=== PATIENT | male | born 1965 | race Caucasian/White ===

== ENCOUNTER 2024-06-03 13:48 | Inpatient (IN) | payer OTHER ==
[2024-06-03 13:59] LABS: Glucose,Whole Blood 377 mg/dL (70-110)
--- NOTE | 2024-06-03 15:41 | ED ---
URI HPI - General Source: patient Mode of arrival: wheelchair Limitations: no limitations <Fabio Lott - Last Filed: 06/03/24 15:39> <Little Bejarano - Last Filed: 06/04/24 17:34> - General Chief Complaint: Upper Respiratory Infection Stated Complaint: Covid, foot injury, weakness, vomiting Time Seen by Provider: 06/03/24 15:28 - History of Present Illness Initial Comments: 59-year-old male presenting with generalized weakness. Patient recently traveled from [place] and several family members have tested positive for COVID. Patient has been feeling weak and dizzy. He has been having nausea and vomiting and unable to tolerate oral intake. He fell at home today, denies any head injury. While he was in [facility] he got severe sunburns to his lower legs and states that they are extremely swollen and weeping (Fabio Lott) Patient is a 59-year-old gentleman presenting today for weakness. History provided by patient and ex- at bedside. They state that they recently trave led to [place] his son's wedding and everyone ended up with COVID19. Patient became symptomatic on Monday and flew home that day. Has been feeling weak and lightheaded for the last 2 days. Decreased intake. Last took his home 30 units of insulin at 1 PM. Denies fevers, endorses chills. Additionally, endorses right ear pain and a mild headache. Earlier today he felt so weak that he did fall on his left side but states it was "a light fall" and did not hit his head. Fell onto his left shoulder and left hip but denies any pain there currently. (Little Bejarano) - Related Data Home Medications Medication Instructions Recorded Confirmed No Known Home Medications 06/03/24 06/03/24 Allergies Allergy/AdvReac Type Severity Reaction Status Date / Time No Known Allergies Allergy Verified 06/03/24 20:13 Review of Systems ROS Other: All systems not noted in ROS Statement are negative. <Fabio Lott - Last Filed: 06/03/24 15:39> ROS Other: All systems not noted in ROS Statement are negative. Constitutional: Reports: weakness. Denies: fever, chills Eyes: Denies: vision change ENT: Reports: ear pain Respiratory: Reports: dyspnea. Denies: cough, hemoptysis Cardiovascular: Reports: dyspnea on exertion. Denies: chest pain Endocrine: Reports: fatigue Gastrointestinal: Reports: nausea, vomiting (one epsiode NBNB emesis). Denies: abdominal pain Musculoskeletal: Denies: arthralgia Neurological: Reports: headache. Denies: weakness, numbness, paresthesias <Little Bejarano - Last Filed: 06/04/24 17:34> ROS Statement: Those systems with pertinent positive or pertinent negative responses have been documented in the HPI. Past Medical History Smoking Status: Current every day smoker Past Alcohol Use History: Daily Past Drug Use History: None Reported <Fabio Lott - Last Filed: 06/03/24 15:39> General Exam Limitations: no limitations <Fabio Lott - Last Filed: 06/03/24 15:39> <Little Bejarano - Last Filed: 06/04/24 17:34> - General Exam Comments Initial Comments: Visual Physical Exam Vital signs reviewed General: Well-appearing, nontoxic, no acute distress. Head: Normocephalic, atraumatic Eyes: PERRLA, EOMI ENT: Airway patent Chest: Nonlabored breathing Skin: No visual rash, normal skin tone Neuro: Alert and oriented 3 Musculoskeletal: No gross abnormalities (Fabio Lott) PE: CONSTITUTIONAL: No apparent distress, ill-appearing, nontoxic SKIN: Warm, dry, no jaundice, hives or petechiae; erythema of the dorsal aspect of the feet bilaterally with single blisters, ruptured, scant discharge from left blister EYES: Pupils are equally round, extraocular movements intact without nystagmus, clear conjunctiva, non-icteric sclera HENT: Normocephalic, atraumatic, dry mucus membranes, oropharynx clear without exudates, right mastoid tenderness, erythematous right tympanic membrane with effusion present, no posterior auricular swelling or protrusion, no erythema overlying region of the mastoid process NECK: , Full range of motion, normal appearance PULMONARY: Clear to auscultation without wheezes, rhonchi, or rales, normal excursion, no accessory muscle use and no stridor CARDIOVASCULAR: Regular rate, rhythm, normal S1 and S2. No appreciated murmurs, rubs or gallops. Strong radial pulses with intact distal perfusion. No lower extremity edema GASTROINTESTINAL: Soft, active bowel sounds throughout, non-tender, non- distended, no palpable masses, no rebound or guarding. No hepatosplenomegaly MUSCULOSKELETAL: Extremities have no gross deformity, no edema, redness, or swelling. No calf swelling NEUROLOGIC:_a/o x 3, GCS 15, normal mentation and speech. Moves all extremities x 4 without motor or sensory deficit PSYCHIATRIC:_normal mood and affect, thought process is clear and linear (Little Bejarano) Course Vital Signs 06/03/24 06/03/24 06/03/24 13:51 19:00 21:08 Temperature 98.1 F 98.7 F 98.2 F Pulse Rate 59 L 99 89 Respiratory 18 16 18 Rate Blood Pressure 100/61 145/78 153/76 O2 Sat by Pulse 99 99 98 Oximetry 06/03/24 06/04/24 06/04/24 23:20 00:51 02:00 Temperature Pulse Rate 100 106 H 97 Respiratory 20 24 18 Rate Blood Pressure 153/72 132/58 O2 Sat by Pulse 97 97 Oximetry 06/04/24 06/04/24 06/04/24 03:00 05:06 05:50 Temperature 100.9 F H Pulse Rate 98 91 Respiratory 20 18 Rate Blood Pressure 143/59 130/57 O2 Sat by Pulse 98 97 Oximetry 06/04/24 06/04/24 06/04/24 06:02 07:02 08:11 Temperature 100.3 F H 98.0 F Pulse Rate 93 81 Respiratory 24 20 Rate Blood Pressure 137/63 129/67 O2 Sat by Pulse 94 L 96 Oximetry 06/04/24 06/04/24 06/04/24 09:59 11:00 12:40 Temperature 98.3 F Pulse Rate 78 78 80 Respiratory 20 22 20 Rate Blood Pressure 131/59 132/72 148/71 O2 Sat by Pulse 96 99 98 Oximetry 06/04/24 14:49 Temperature 99.7 F H Pulse Rate 86 Respiratory 18 Rate Blood Pressure 133/74 O2 Sat by Pulse 98 Oximetry Medical Decision Making <Fabio Lott - Last Filed: 06/03/24 15:39> - Lab Data Result diagrams: 06/04/24 05:56 06/04/24 14:21 <Little Bejarano - Last Filed: 06/04/24 17:34> - Medical Decision Making I performed the quick note portion of this visit, electronically signed Fabio Lott PA-C (Fabio Lott) Was pt. sent in by a medical professional or institution ([facility], [employer], urgent care, hospital, or [place] health care facility...) When possible be specific @ -No Did you speak to anyone other than the patient for history (EMS, parent, family, police, friend...)? What history was obtained from this source @ -Patient's ex- assisted in providing history, provided history that family is COVID-positive Did you review nursing and triage notes (agree or disagree)? Why? @ -I reviewed nursing and triage notes- correction in that patient's ear was bleeding monday night, no longer Were old charts reviewed (outside hosp., previous admission, EMS record, old EKG, old radiological studies, urgent care reports/EKG's, [place] health care facility records)? Report findings @Medical records reviewed- no recent ED visits Differential Diagnosis (chest pain, altered mental status, abdominal pain women, abdominal pain men, vaginal bleeding, weakness, fever, dyspnea, syncope, headache, dizziness, GI bleed, back pain, seizure, CVA, palpatations, mental health, musculoskeletal)? Differential Weakness: Hypoglycemia, DKA, viral infection, shock, sepsis, hyponatremia, anemia, infection, ACS this is not meant to be an all-inclusive list. EKG interpreted by me (3pts min.). @ - sinus rhythm, rate 86 beats minute, IL interval 154 ms QRS duration 90 ms QT/QTc 405/448 ms normal axis, T wave inversion aVR, questionable half millimeter ST elevation in aVL, no ST depressions, no STEMI, no arrhythmia X-rays interpreted by me (1pt min.). No cardiomegaly, consolidations or pleural effusions CT interpreted by me (1pt min.). @No air fluid levels or haziness of the right mastoid air cells U/S interpreted by me (1pt. min.). @ -None done What testing was considered but not performed or refused? (CT, X-rays, U/S, labs)? Why? @ -None What meds were considered but not given or refused? Why? @ -None Did you discuss the management of the patient with other professionals (professionals i.e. [facility], [employer], lab, RT, psych nurse, socially responsible investment adviser, model builder, teacher, special technical operations officer, case preparer and liner)? Give summary @ -No Was smoking cessation discussed for >3mins.? @ -No Was critical care preformed (if so, how long)? @Yes, 35 minutes Were there social determinants of health that impacted care today? How? (Homelessness, low income, unemployed, alcoholism, drug addiction, transportation, low edu. Level, literacy, decrease access to med. care, alf, rehab)? @ -No Was there de-escalation of care discussed even if they declined (Discuss DNR or withdrawal of care, Hospice)? @ -No What co-morbidities impacted this encounter? (DM, HTN, Smoking, COPD, CAD, Cancer, CVA, ARF, Chemo, Hep., AIDS, mental health diagnosis, sleep apnea, morbid obesity)? DM Was patient admitted / discharged? Hospital course, mention meds given and route, prescriptions, significant lab abnormalities, going to OR and other pertinent info. @Admission- 59 y/o male PMH DM type II presenting today for weakness, lightheadedness, right ear pain, COVID+. Has never been vaccinated against [place] VID19. Patient initially seen and assessed in triage by [facility]. Labs resulted consistent with DKA. Repeat blood sugar check without intervention was 186 so repeat BMP was drawn after 2 L IV fluids given. Discussed anticipated plan for admission with patient. He is agreeable plan. On recheck blood sugar back up to 339. Insulin bolus and drip and additional DKA orders placed. Additionally patient had right mastoid tenderness and right otitis media, CT mastoids ordered as well as cefepime and vancomycin to cover for mastoiditis. Mastoid CT read by radiologist as "opacification of the right mastoid air cells, no septal destruction is evident, some fluid is in the right middle ear, left mastoid air cells are underpneumatized, visualized mastoid air cells are aerated... Clinical correlation for early mastoiditis, otitis media on the right is likely present with acute left maxillary sinusitis". On review there does not appear to be air fluid levels or haziness of the right mastoid region on CT. Plan for admission for DKA. Case discussed with Dr. Daniel, kindly accepts patient for admission. Undiagnosed new problem with uncertain prognosis? @ -No Drug Therapy requiring intensive monitoring for toxicity (Heparin, Nitro, Insulin, Cardizem)? @ -No Were any procedures done? @ -No Diagnosis/symptom? Right otitis media, cellulitis, DKA, question early right mastoiditis Acute, or Chronic, or Acute on Chronic? @Acute Uncomplicated (without systemic symptoms) or Complicated (systemic symptoms)? Complicated Side effects of treatment? @ -No Exacerbation, Progression, or Severe Exacerbation? @ -No Poses a threat to life or bodily function? How? (Chest pain, USA, MA, pneumonia, PE, COPD, DKA, ARF, appy, cholecystitis, CVA, Diverticulitis, Homicidal, Suicidal, threat to staff... and all critical care pts) @Yes (Little Bejarano) - Lab Data Lab Results 06/03/24 06/03/24 06/03/24 Range/Units 13:58 13:58 16:41 WBC 13.8 H (3.8-10.6) k/uL RBC 4.39 (4.30-5.90) m/uL Hgb 14.7 (13.0-17.5) gm/dL Hct 44.0 (39.0-53.0) % MCV 100.2 H (80.0-100.0) fL MCH 33.5 (25.0-35.0) pg MCHC 33.5 (31.0-37.0) g/dL RDW 12.3 (11.5-15.5) % Plt Count 190 (150-450) k/uL MPV 8.6 Neutrophils % 86 % Lymphocytes % 6 % Monocytes % 6 % Eosinophils % 1 % Basophils % 0 % Neutrophils # 11.8 H (1.3-7.7) k/uL Lymphocytes # 0.9 L (1.0-4.8) k/uL Monocytes # 0.8 (0-1.0) k/uL Eosinophils # 0.1 (0-0.7) k/uL Basophils # 0.1 (0-0.2) k/uL PT (10.0-12.5) sec INR (<1.2) APTT (22.0-30.0) sec D-Dimer (<0.60) mg/L FEU Sodium (137-145) mmol/L Potassium (3.5-5.1) mmol/L Chloride (98-107) mmol/L Carbon Dioxide (22-30) mmol/L Anion Gap mmol/L BUN (9-20) mg/dL Creatinine (0.66-1.25) mg/dL Est GFR (CKD-EPI)AfAm (>60 ml/min/1.73 sqM) Est GFR (CKD-EPI)NonAf (>60 ml/min/1.73 sqM) Glucose (74-99) mg/dL POC Glucose (mg/dL) 377 H (70-110) mg/dL POC Glu Smoke Control Supervisor ID Rc Ban Plasma Lactic Acid Maury (0.7-2.0) mmol/L Calcium (8.4-10.2) mg/dL Phosphorus (2.5-4.5) mg/dL Magnesium (1.6-2.3) mg/dL Total Bilirubin (0.2-1.3) mg/dL AST (17-59) U/L ALT (4-49) U/L Alkaline Phosphatase (38-126) U/L Total Protein (6.3-8.2) g/dL Albumin (3.5-5.0) g/dL Acetone, Qual (Negative) Influenza Type A (PCR) Not Detected (Not Detectd) Influenza Type B (PCR) Not Detected (Not Detectd) RSV (PCR) Not Detected (Not Detectd) SARS-CoV-2 (PCR) Detected A (Not Detectd) 06/03/24 06/03/24 06/03/24 Range/Units 16:41 16:41 16:41 WBC (3.8-10.6) k/uL RBC (4.30-5.90) m/uL Hgb (13.0-17.5) gm/dL Hct (39.0-53.0) % MCV (80.0-100.0) fL MCH (25.0-35.0) pg MCHC (31.0-37.0) g/dL RDW (11.5-15.5) % Plt Count (150-450) k/uL MPV Neutrophils % % Lymphocytes % % Monocytes % % Eosinophils % % Basophils % % Neutrophils # (1.3-7.7) k/uL Lymphocytes # (1.0-4.8) k/uL Monocytes # (0-1.0) k/uL Eosinophils # (0-0.7) k/uL Basophils # (0-0.2) k/uL PT 10.2 (10.0-12.5) sec INR 0.9 (<1.2) APTT 22.7 (22.0-30.0) sec D-Dimer (<0.60) mg/L FEU Sodium 134 L (137-145) mmol/L Potassium 5.0 (3.5-5.1) mmol/L Chloride 97 L (98-107) mmol/L Carbon Dioxide 11 L (22-30) mmol/L Anion Gap 26 mmol/L BUN 25 H (9-20) mg/dL Creatinine 1.05 (0.66-1.25) mg/dL Est GFR (CKD-EPI)AfAm 89 (>60 ml/min/1.73 sqM) Est GFR (CKD-EPI)NonAf 77 (>60 ml/min/1.73 sqM) Glucose 391 H (74-99) mg/dL POC Glucose (mg/dL) (70-110) mg/dL POC Glu Smoke Control Supervisor ID Plasma Lactic Acid Maury 2.0 (0.7-2.0) mmol/L Calcium 9.1 (8.4-10.2) mg/dL Phosphorus (2.5-4.5) mg/dL Magnesium 2.0 (1.6-2.3) mg/dL Total Bilirubin 0.9 (0.2-1.3) mg/dL AST 29 (17-59) U/L ALT 31 (4-49) U/L Alkaline Phosphatase 60 (38-126) U/L Total Protein 7.6 (6.3-8.2) g/dL Albumin 4.2 (3.5-5.0) g/dL Acetone, Qual Positive (Negative) Influenza Type A (PCR) (Not Detectd) Influenza Type B (PCR) (Not Detectd) RSV (PCR) (Not Detectd) SARS-CoV-2 (PCR) (Not Detectd) 06/03/24 06/03/24 06/03/24 Range/Units 16:41 18:57 20:26 WBC (3.8-10.6) k/uL RBC (4.30-5.90) m/uL Hgb (13.0-17.5) gm/dL Hct (39.0-53.0) % MCV (80.0-100.0) fL MCH (25.0-35.0) pg MCHC (31.0-37.0) g/dL RDW (11.5-15.5) % Plt Count (150-450) k/uL MPV Neutrophils % % Lymphocytes % % Monocytes % % Eosinophils % % Basophils % % Neutrophils # (1.3-7.7) k/uL Lymphocytes # (1.0-4.8) k/uL Monocytes # (0-1.0) k/uL Eosinophils # (0-0.7) k/uL Basophils # (0-0.2) k/uL PT (10.0-12.5) sec INR (<1.2) APTT (22.0-30.0) sec D-Dimer 0.48 (<0.60) mg/L FEU Sodium (137-145) mmol/L Potassium (3.5-5.1) mmol/L Chloride (98-107) mmol/L Carbon Dioxide (22-30) mmol/L Anion Gap mmol/L BUN (9-20) mg/dL Creatinine (0.66-1.25) mg/dL Est GFR (CKD-EPI)AfAm (>60 ml/min/1.73 sqM) Est GFR (CKD-EPI)NonAf (>60 ml/min/1.73 sqM) Glucose (74-99) mg/dL POC Glucose (mg/dL) 168 H 349 H (70-110) mg/dL POC Glu Smoke Control Supervisor [facility] Plasma Lactic Acid Maury (0.7-2.0) mmol/L Calcium (8.4-10.2) mg/dL Phosphorus (2.5-4.5) mg/dL Magnesium (1.6-2.3) mg/dL Total Bilirubin (0.2-1.3) mg/dL AST (17-59) U/L ALT (4-49) U/L Alkaline Phosphatase (38-126) U/L Total Protein (6.3-8.2) g/dL Albumin (3.5-5.0) g/dL Acetone, Qual (Negative) Influenza Type A (PCR) (Not Detectd) Influenza Type B (PCR) (Not Detectd) RSV (PCR) (Not Detectd) SARS-CoV-2 (PCR) (Not Detectd) 06/03/24 06/03/24 06/03/24 Range/Units 20:33 20:33 20:33 WBC (3.8-10.6) k/uL RBC (4.30-5.90) m/uL Hgb (13.0-17.5) gm/dL Hct (39.0-53.0) % MCV (80.0-100.0) fL MCH (25.0-35.0) pg MCHC (31.0-37.0) g/dL RDW (11.5-15.5) % Plt Count (150-450) k/uL MPV Neutrophils % % Lymphocytes % % Monocytes % % Eosinophils % % Basophils % % Neutrophils # (1.3-7.7) k/uL Lymphocytes # (1.0-4.8) k/uL Monocytes # (0-1.0) k/uL Eosinophils # (0-0.7) k/uL Basophils # (0-0.2) k/uL PT (10.0-12.5) sec INR (<1.2) APTT (22.0-30.0) sec D-Dimer (<0.60) mg/L FEU Sodium 135 L 136 L (137-145) mmol/L Potassium 4.2 4.3 (3.5-5.1) mmol/L Chloride 100 100 (98-107) mmol/L Carbon Dioxide 11 L 11 L (22-30) mmol/L Anion Gap 24 25 mmol/L BUN 26 H 26 H (9-20) mg/dL Creatinine 1.04 1.00 (0.66-1.25) mg/dL Est GFR (CKD-EPI)AfAm >90 >90 (>60 ml/min/1.73 sqM) Est GFR (CKD-EPI)NonAf 78 82 (>60 ml/min/1.73 sqM) Glucose 344 H 339 H (74-99) mg/dL POC Glucose (mg/dL) (70-110) mg/dL POC Glu Smoke Control Supervisor ID Plasma Lactic Acid Maury (0.7-2.0) mmol/L Calcium 8.1 L (8.4-10.2) mg/dL Phosphorus 3.7 (2.5-4.5) mg/dL Magnesium (1.6-2.3) mg/dL Total Bilirubin (0.2-1.3) mg/dL AST (17-59) U/L ALT (4-49) U/L Alkaline Phosphatase (38-126) U/L Total Protein (6.3-8.2) g/dL Albumin (3.5-5.0) g/dL Acetone, Qual (Negative) Influenza Type A (PCR) (Not Detectd) Influenza Type B (PCR) (Not Detectd) RSV (PCR) (Not Detectd) SARS-CoV-2 (PCR) (Not Detectd) Disposition <Fabio Lott - Last Filed: 06/03/24 15:39> <Little Bejarano - Last Filed: 06/04/24 17:34> Clinical Impression: DKA (diabetic ketoacidosis), COVID-19, Cellulitis, Otitis media Disposition: ADMITTED IP TO THIS HOSP Condition: Good
--- NOTE | 2024-06-03 16:26 | XR ---
Chest, 2 view. HISTORY: Weakness COMPARISON: None TECHNIQUE: PA and lateral views the chest are obtained. FINDINGS: The lungs are clear and there is no consolidative or interstitial opacity. There is no pleural effusion or pneumothorax. The heart, pulmonary vasculature, mediastinum and francisco javier appear normal. The osseous structures are intact. IMPRESSION: No significant abnormality seen. No acute cardiopulmonary disease. [facility], Workstation: [facility], 06/03/2024 4:24 PM
[2024-06-03 17:25] LABS: Basophils # (A) 0.1 k/uL (0-0.2); Basophils % (A) 0 %; Eosinophils # (A) 0.1 k/uL (0-0.7); Eosinophils % (A) 1 %; HGB 14.7 gm/dL (13.0-17.5); Lymphocytes # (A) 0.9 k/uL (1.0-4.8); Lymphocytes % (A) 6 %; MCH 33.5 pg (25.0-35.0); MCHC 33.5 g/dL (31.0-37.0); MCV 100.2 fL (80.0-100.0); Mean Platelet Volume 8.6; Monocytes # (A) 0.8 k/uL (0-1.0); Monocytes % (A) 6 %; Neutrophils # (A) 11.8 k/uL (1.3-7.7); Neutrophils % (A) 86 %; Platelet Count 190 k/uL (150-450); RBC 4.39 m/uL (4.30-5.90); RDW 12.3 % (11.5-15.5); WBC 13.8 k/uL (3.8-10.6)
[2024-06-03 17:45] LABS: INR 0.9 (<1.2); Partial Thromboplastin Time 22.7 sec (22.0-30.0); Prothrombin Time 10.2 sec (10.0-12.5)
[2024-06-03 17:49] LABS: ALT 31 U/L (4-49); AST 29 U/L (17-59); African American GFR (CKD) 89 (>60 ml/min/1.73 sqM); Albumin 4.2 g/dL (3.5-5.0); Alkaline Phosphatase 60 U/L (38-126); Anion Gap 26 mmol/L; Blood Urea Nitrogen 25 mg/dL (9-20); Calcium 9.1 mg/dL (8.4-10.2); Carbon Dioxide 11 mmol/L (22-30); Chloride 97 mmol/L (98-107); Glucose 391 mg/dL (74-99); Non-African American GFR(CKD) 77 (>60 ml/min/1.73 sqM); Sodium 134 mmol/L (137-145); Total Bilirubin 0.9 mg/dL (0.2-1.3); Total Protein 7.6 g/dL (6.3-8.2)
[2024-06-03 18:59] LABS: Glucose,Whole Blood 168 mg/dL (70-110)
[2024-06-03] MEDS: SODIUM CHLORIDE 0.9% 2,000 ML IV ONE (19:19)
[2024-06-03] MEDS ORDERED: VANCOMYCIN IV PER PHARMACY 1 EACH MISC MISCELLANE PRN (19:24)
[2024-06-03] MEDS ORDERED: INSULIN REGULAR 100 UNIT in SODIUM CHLORIDE 0.9% 100 ML IV SCH (19:30)
[2024-06-03 20:28] LABS: Glucose,Whole Blood 349 mg/dL (70-110)
--- NOTE | 2024-06-03 20:37 | CT ---
EXAMINATION TYPE: CT mastoid wo con DATE OF EXAM: 06/03/2024 8:14 PM COMPARISON: None. CLINICAL INDICATION: Male, 59 years old with history of R. ear inf. mastoid TTP, DM, Right ear bleedi ng, fall, dizziness, weakness, fatigue, vomiting. TECHNIQUE: Contrast used: mL of , (none if empty) Oral contrast used: (none if empty) Axial images were obtained at 1.5 mm thick sections. Reconstructed images in the coronal plane are re viewed. FINDINGS: There is opacification the right mastoid air cells. No septal destruction is evident. Some fluid is i n the right middle ear. Left mastoid air cells are under pneumatized. Visualized mastoid air cells ar e aerated. Calcifications within scattered ethmoid air cells. Air-fluid levels within the left maxillary sinus. Ostiomeatal units are obstructed bilaterally. IMPRESSION: 1. CLINICAL CORRELATION RECOMMENDED FOR EARLY RIGHT MASTOIDITIS. 2. OTITIS MEDIA ON THE RIGHT IS LIKELY PRESENT. 3. ACUTE LEFT MAXILLARY SINUSITIS. ADDITIONAL MUCOSAL THICKENING IS NOTED WITHIN ETHMOID AIR CELLS AN D THE RIGHT MAXILLARY SINUS. THE OSTIOMEATAL UNITS ARE OBSTRUCTED. [facility], , 06/03/2024 8:35 PM
[2024-06-03] MEDS: CEFEPIME 2 GM in SODIUM CHLORIDE 0.9% 100 ML IVPB STA (21:04)
[2024-06-03 21:06] LABS: African American GFR (CKD) >90 (>60 ml/min/1.73 sqM); Anion Gap 24 mmol/L; Blood Urea Nitrogen 26 mg/dL (9-20); Carbon Dioxide 11 mmol/L (22-30); Chloride 100 mmol/L (98-107); Glucose 344 mg/dL (74-99); Non-African American GFR(CKD) 78 (>60 ml/min/1.73 sqM); Potassium 4.2 mmol/L (3.5-5.1); Sodium 135 mmol/L (137-145)
[2024-06-03] MEDS: INSULIN REGULAR BOLUS (FROM DRIP BAG) IV ONE ×2 (21:06→21:39)
[2024-06-03] MEDS: SODIUM CHLORIDE 0.9% 1,000 ML with POTASSIUM CHLORIDE 10 MEQ IV SCH (21:06)
[2024-06-03 21:07] LABS: African American GFR (CKD) >90 (>60 ml/min/1.73 sqM); Anion Gap 25 mmol/L; Blood Urea Nitrogen 26 mg/dL (9-20); Calcium 8.1 mg/dL (8.4-10.2); Carbon Dioxide 11 mmol/L (22-30); Chloride 100 mmol/L (98-107); Glucose 339 mg/dL (74-99); Non-African American GFR(CKD) 82 (>60 ml/min/1.73 sqM); Potassium 4.3 mmol/L (3.5-5.1); Sodium 136 mmol/L (137-145)
[2024-06-03] MEDS: SODIUM CHLORIDE 0.9% 1,000 ML IV SCH (21:07)
[2024-06-03] MEDS: INSULIN REGULAR 100 UNIT in SODIUM CHLORIDE 0.9% 100 ML IV SCH (21:37)
[2024-06-03] MEDS: VANCOMYCIN 2,000 MG in SODIUM CHLORIDE 0.9% 500 ML 500 ML IVPB ONE (21:49)
[2024-06-03 22:40] LABS: Glucose,Whole Blood 257 mg/dL (70-110)
[2024-06-03] MEDS: D5-0.45% NACL WITH KCL 20MEQ/L 1,000 ML IV SCH (22:53)
[2024-06-03] MEDS ORDERED: traMADol 50 MG TAB PO PRN (23:28)
[2024-06-03] MEDS ORDERED: NALOXONE 0.4 MG/ML 1 ML VIAL IV PRN (23:28)
[2024-06-03 23:35] LABS: Glucose,Whole Blood 228 mg/dL (70-110)
[2024-06-04 00:26] LABS: African American GFR (CKD) >90 (>60 ml/min/1.73 sqM); Anion Gap 19 mmol/L; Blood Urea Nitrogen 26 mg/dL (9-20); Carbon Dioxide 14 mmol/L (22-30); Chloride 105 mmol/L (98-107); Glucose 217 mg/dL (74-99); Non-African American GFR(CKD) >90 (>60 ml/min/1.73 sqM); Potassium 4.1 mmol/L (3.5-5.1); Sodium 138 mmol/L (137-145)
[2024-06-04 00:41] LABS: Glucose,Whole Blood 207 mg/dL (70-110)
[2024-06-04] MEDS: ONDANSETRON 4 MG/2 ML VIAL IVP PRN (00:42)
[2024-06-04] MEDS: MORPHINE SULFATE 4 MG/ML SYRINGE IV PRN (00:42)
[2024-06-04 01:15] LABS: Appearance,Urine Clear (Clear); Bilirubin,Urine Negative (Negative); Blood,Urine Trace (Negative); Color,Urine Colorless; Glucose,Urine (UA) 4+ (Negative); Hyaline Casts,Urine 14 /lpf (0-2); Leukocyte Esterase,Urine Negative (Negative); Mucus,Urine Rare /hpf; Nitrite,Urine Negative (Negative); PH, Urine 5.5 (5.0-8.0); Protein,Urine Trace (Negative); RBC,Urine <1 /hpf (0-5); Specific Gravity,Urine 1.026 (1.001-1.035); Squamous Epithelial Cell,Urine 1 /hpf (0-4); Urobilinogen,Urine <2.0 mg/dL (<2.0); WBC,Urine 2 /hpf (0-5)
[2024-06-04 01:23] LABS: Ketones,Urine 4+ (Negative)
[2024-06-04 01:49] LABS: Glucose,Whole Blood 182 mg/dL (70-110)
[2024-06-04 02:59] LABS: Glucose,Whole Blood 198 mg/dL (70-110)
--- NOTE | 2024-06-04 03:59 | P.HPIM ---
History of Present Illness H&P Date: 06/04/24 Chief Complaint: DKA Patient is a 59-year-old male with insulin-dependent diabetes mellitus presented with generalized weakness that started last Monday. Patient recently traveled from [place] and several family members have tested positive for COVID. Patient currently reports generalized weakness all over the body that has been going on since last Monday. His symptoms have progressively gotten worse which made the patient to come to ED for evaluation. Alongside with generalized weakness, patient also reported having watery diarrhea for the past few days with no melena/hematochezia. In addition, patient reported feeling nauseated and having dry heaves. He reports poor appetite due to the nausea. Per ED note, patient also endorsed having a fall on his left side earlier yesterday but did not hit his head. Patient takes 30 units of insulin every day and the last time he took his home insulin was at 1 PM yesterday. Patient currently endorses chills, coughing, runny nose, sore throat, right ear pain. Denies fever, belly pain, constipation, tingling/numbness in upper or lower extremity, dysuria, lower extremity swelling. ED documentation reviewed. In the ED patient was treated with 2 boluses of normal saline, bolus of regular insulin IV x 2, potassium chloride 10 mill equivalent IV x 1, cefepime 2 g IV x 1, vancomycin 2000 mg IV, 100 units of i nsulin regular IV Vitals on admission temperature 98.2, pulse rate 106, respiratory rate 24, blood pressure 153/72, O2 sat 97% on room air EKG independently interpreted as sinus rhythm with ventricular rate of 86 bpm, QTc interval of 448 ms, septal myocardial infarction probably old infarct CXR shows no significant abnormality seen. No acute cardiopulmonary disease. CT of mastoid without contrast shows clinical correlation recommended for early right mastoiditis. Otitis media on the right is likely present. Acute left maxillary sinusitis. Additional mucosal thickening is noted within the ethmoid air cells and the right maxillary sinus. The ostiomeatal units are obstructed. Labs on admission show WBC 13.8, hemoglobin 14.7, hematocrit 44, MCV 100.2, platelets 190, neutrophils 11.8, PT 10.2, PTT 22.7, INR 0.9, D-dimer 0.48, sodium 138, potassium 4.1, chloride 105, carbon dioxide 14, BUN 26, creatinine 0.9, glucose 217, phosphorus 2.0 UA shows clear urine, trace protein, 4+ glucose, 4+ ketones, trace blood, negative nitrite, negative leukocyte esterase Respiratory panel tested positive for COVID Review of systems: Pertinent positives and negatives as discussed in HPI, a complete review of systems was performed and all other systems are negative. PMH: Diabetes mellitus PSH: No past surgical history FMH: No pertinent family history Allergies: No known drug allergies Social history: Tobacco: Chronic smoker a pack a day for the past 40 years Alcohol: Drinks a couple beers a day Recreational drugs: No drug use Travel: Traveled from [place] recently and several family members have tested positive for COVID Sick contacts: Several family members have tested positive for COVID Physical examination: Vital signs reviewed General: nontoxic, no distress, appears at stated age Derm: warm, dry, intact Head: atraumatic, normocephalic, symmetric Eyes: anicteric sclera Mouth: no lip lesion, mucus membranes moist Cardiovascular: S1 S2 reg, no murmur Lungs: CTA bilateral, no rhonchi, no rales, no accessory muscle use Abdominal: soft, non-tender to palpation Extremities: No cyanosis, clubbing, or pedal edema. Neuro: Alert, Oriented to time, person, place, Gross neurological examination did not reveal any focal deficits. Cranial nerves II to XII grossly intact. Bilateral upper and lower muscle strength intact and sensation intact. Psych: appropriate affect Assessment/Plan: 59-year-old male with past medical history of presented with generalized weakness. Patient will be admitted to internal medicine service. Active: #. Diabetic ketoacidosis #. Elevated anion gap #. Hyperglycemia, history of diabetes mellitus Initial blood glucose 377, most recent glucose 198 Anion gap of 19 4+ ketones in the urine Continue insulin drip until anion gap normalizes Continue normal saline at 200 cc an hour Continue D5W at 150 cc an hour Monitor electrolytes q4h and blood glucose q1h #. Otitis media #. Early right mastoiditis #. Acute left maxillary sinusitis CT of mastoid without contrast shows early right mastoiditis and otitis media in the right ear. Also showed acute left maxillary sinusitis. Continue vancomycin per pharmacy dosing C/w Cefepime 2g q8h IV #. Leukocytosis, likely secondary to sinusitis and mastoiditis WBC 13.8 Neutrophils 11.8 Monitor morning CBC #. Hypophosphatemia Phosphorus 2.0 Initiate Phos neutral Monitor phosphorus level Monitor morning BMP #. Positive for COVID-19 Continue symptomatic treatment with Tylenol and Zofran as needed Patient not requiring supplemental oxygen at this time F: No restrictions E: As needed N: NPO diet A: Wheelchair DVT prophylaxis: Pneumatic compression sleeve The patient is admitted with an anticipated more than 2 midnight stay for evaluation of DKA CODE STATUS: Full code Discussed with: Patient Anticipated discharge place: Home Past Medical History Smoking Status: Current every day smoker Past Alcohol Use History: Daily Past Drug Use History: None Reported Medications and Allergies Home Medications Medication Instructions Recorded Confirmed Type No Known Home Medications 06/03/24 06/03/24 History Allergies Allergy/AdvReac Type Severity Reaction Status Date / Time No Known Allergies Allergy Verified 06/03/24 20:13 Physical Exam Vitals: Vital Signs Temp Pulse Resp BP Pulse Ox 06/04/24 00:51 106 H 24 97 06/03/24 23:20 100 20 153/72 97 06/03/24 21:08 98.2 F 89 18 153/76 98 06/03/24 19:00 98.7 F 99 16 145/78 99 06/03/24 13:51 98.1 F 59 L 18 100/61 99 Intake and Output 06/03/24 06/03/24 06/04/24 14:59 22:59 06:59 Other: Weight 90.718 kg Results CBC & Chem 7: 06/03/24 16:41 06/03/24 23:59 Labs: Abnormal Lab Results - Last 24 Hours (Table) 06/03/24 06/03/24 06/03/24 Range/Units 13:58 13:58 16:41 WBC 13.8 H (3.8-10.6) k/uL MCV 100.2 H (80.0-100.0) fL Neutrophils # 11.8 H (1.3-7.7) k/uL Lymphocytes # 0.9 L (1.0-4.8) k/uL Sodium (137-145) mmol/L Chloride (98-107) mmol/L Carbon Dioxide (22-30) mmol/L BUN (9-20) mg/dL Glucose (74-99) mg/dL POC Glucose (mg/dL) 377 H (70-110) mg/dL Calcium (8.4-10.2) mg/dL Phosphorus (2.5-4.5) mg/dL Urine Protein (Negative) Urine Glucose (UA) (Negative) Urine Ketones (Negative) Urine Blood (Negative) Hyaline Casts (0-2) /lpf Urine Mucus (None) /hpf SARS-CoV-2 (PCR) Detected A (Not Detectd) 06/03/24 06/03/24 06/03/24 Range/Units 16:41 18:57 20:26 WBC (3.8-10.6) k/uL MCV (80.0-100.0) fL Neutrophils # (1.3-7.7) k/uL Lymphocytes # (1.0-4.8) k/uL Sodium 134 L (137-145) mmol/L Chloride 97 L (98-107) mmol/L Carbon Dioxide 11 L (22-30) mmol/L BUN 25 H (9-20) mg/dL Glucose 391 H (74-99) mg/dL POC Glucose (mg/dL) 168 H 349 H (70-110) mg/dL Calcium (8.4-10.2) mg/dL Phosphorus (2.5-4.5) mg/dL Urine Protein (Negative) Urine Glucose (UA) (Negative) Urine Ketones (Negative) Urine Blood (Negative) Hyaline Casts (0-2) /lpf Urine Mucus (None) /hpf SARS-CoV-2 (PCR) (Not Detectd) 06/03/24 06/03/24 06/03/24 Range/Units 20:33 20:33 22:38 WBC (3.8-10.6) k/uL MCV (80.0-100.0) fL Neutrophils # (1.3-7.7) k/uL Lymphocytes # (1.0-4.8) k/uL Sodium 135 L 136 L (137-145) mmol/L Chloride (98-107) mmol/L Carbon Dioxide 11 L 11 L (22-30) mmol/L BUN 26 H 26 H (9-20) mg/dL Glucose 344 H 339 H (74-99) mg/dL POC Glucose (mg/dL) 257 H (70-110) mg/dL Calcium 8.1 L (8.4-10.2) mg/dL Phosphorus (2.5-4.5) mg/dL Urine Protein (Negative) Urine Glucose (UA) (Negative) Urine Ketones (Negative) Urine Blood (Negative) Hyaline Casts (0-2) /lpf Urine Mucus (None) /hpf SARS-CoV-2 (PCR) (Not Detectd) 06/03/24 06/03/24 06/03/24 Range/Units 23:34 23:59 23:59 WBC (3.8-10.6) k/uL MCV (80.0-100.0) fL Neutrophils # (1.3-7.7) k/uL Lymphocytes # (1.0-4.8) k/uL Sodium (137-145) mmol/L Chloride (98-107) mmol/L Carbon Dioxide 14 L (22-30) mmol/L BUN 26 H (9-20) mg/dL Glucose 217 H (74-99) mg/dL POC Glucose (mg/dL) 228 H (70-110) mg/dL Calcium (8.4-10.2) mg/dL Phosphorus 2.0 L (2.5-4.5) mg/dL Urine Protein (Negative) Urine Glucose (UA) (Negative) Urine Ketones (Negative) Urine Blood (Negative) Hyaline Casts (0-2) /lpf Urine Mucus (None) /hpf SARS-CoV-2 (PCR) (Not Detectd) 06/04/24 06/04/24 06/04/24 Range/Units 00:35 00:40 01:48 WBC (3.8-10.6) k/uL MCV (80.0-100.0) fL Neutrophils # (1.3-7.7) k/uL Lymphocytes # (1.0-4.8) k/uL Sodium (137-145) mmol/L Chloride (98-107) mmol/L Carbon Dioxide (22-30) mmol/L BUN (9-20) mg/dL Glucose (74-99) mg/dL POC Glucose (mg/dL) 207 H 182 H (70-110) mg/dL Calcium (8.4-10.2) mg/dL Phosphorus (2.5-4.5) mg/dL Urine Protein Trace H (Negative) Urine Glucose (UA) 4+ H (Negative) Urine Ketones 4+ H (Negative) Urine Blood Trace H (Negative) Hyaline Casts 14 H (0-2) /lpf Urine Mucus Rare H (None) /hpf SARS-CoV-2 (PCR) (Not Detectd)
[2024-06-04 04:02] LABS: Glucose,Whole Blood 146 mg/dL (70-110)
[2024-06-04 05:44] LABS: Glucose,Whole Blood 124 mg/dL (70-110)
[2024-06-04] MEDS: ACETAMINOPHEN TAB 325 MG TAB PO PRN (05:55)
[2024-06-04 06:29] LABS: Basophils % (A) 0 %; Eosinophils % (A) 0 %; HCT 36.8 % (39.0-53.0); HGB 12.3 gm/dL (13.0-17.5); Lymphocytes # (A) 0.9 k/uL (1.0-4.8); Lymphocytes % (A) 8 %; MCH 32.4 pg (25.0-35.0); MCHC 33.3 g/dL (31.0-37.0); MCV 97.3 fL (80.0-100.0); Mean Platelet Volume 8.3; Monocytes # (A) 1.6 k/uL (0-1.0); Monocytes % (A) 13 %; Neutrophils # (A) 9.6 k/uL (1.3-7.7); Neutrophils % (A) 77 %; Platelet Count 201 k/uL (150-450); RBC 3.79 m/uL (4.30-5.90); RDW 12.2 % (11.5-15.5); WBC 12.4 k/uL (3.8-10.6)
[2024-06-04 06:58] LABS: Glucose,Whole Blood 133 mg/dL (70-110)
[2024-06-04] MEDS: CEFEPIME 2 GM in SODIUM CHLORIDE 0.9% 100 ML IVPB SCH (07:00)
[2024-06-04 07:11] LABS: African American GFR (CKD) >90 (>60 ml/min/1.73 sqM); Anion Gap 10 mmol/L; Blood Urea Nitrogen 23 mg/dL (9-20); Calcium 8.1 mg/dL (8.4-10.2); Carbon Dioxide 19 mmol/L (22-30); Chloride 108 mmol/L (98-107); Glucose 111 mg/dL (74-99); Non-African American GFR(CKD) >90 (>60 ml/min/1.73 sqM); Phosphorus 1.2 mg/dL (2.5-4.5); Potassium 3.9 mmol/L (3.5-5.1); Sodium 137 mmol/L (137-145)
[2024-06-04 08:15] LABS: Glucose,Whole Blood 149 mg/dL (70-110)
[2024-06-04] MEDS: POTAS-SOD-PHOS 280-160-250 MG 1 EACH PACKET PO SCH (08:18)
[2024-06-04] MEDS: INSULIN NPH 100 UNIT/ML 10 ML VIAL SQ ONE (08:40)
[2024-06-04 09:54] LABS: Glucose,Whole Blood 157 mg/dL (70-110)
[2024-06-04] MEDS: VANCOMYCIN 1,500 MG in SODIUM CHLORIDE 0.9% 500 ML 500 ML IVPB SCH (10:59)
[2024-06-04 11:44] LABS: Glucose,Whole Blood 173 mg/dL (70-110)
[2024-06-04] MEDS: INSULIN ASPART (NovoLOG) 100 UNIT/ML VIAL SQ SCH ×2 (12:41→12:42)
[2024-06-04 14:03] VITALS: BMI 29.5
[2024-06-04 14:48] LABS: Glucose,Whole Blood 138 mg/dL (70-110)
[2024-06-04 14:56] LABS: African American GFR (CKD) >90 (>60 ml/min/1.73 sqM); Anion Gap 9 mmol/L; Blood Urea Nitrogen 20 mg/dL (9-20); Calcium 7.9 mg/dL (8.4-10.2); Carbon Dioxide 20 mmol/L (22-30); Chloride 107 mmol/L (98-107); Glucose 139 mg/dL (74-99); Non-African American GFR(CKD) >90 (>60 ml/min/1.73 sqM); Phosphorus 1.7 mg/dL (2.5-4.5); Potassium 3.9 mmol/L (3.5-5.1); Sodium 136 mmol/L (137-145)
--- NOTE | 2024-06-04 14:56 | P.PN ---
Subjective Progress Note Date: 06/04/24 Hospital Course: Patient is a 59-year-old male with insulin-dependent diabetes mellitus presented with generalized weakness that started last Monday. Patient recently traveled from [place] and several family members have tested positive for COVID. Patient currently reports generalized weakness all over the body that has been going on since last Monday. His symptoms have progressively gotten worse which made the patient to come to ED for evaluation. Alongside with generalized weakness, patient also reported having watery diarrhea for the past few days with no melena/hematochezia. In addition, patient reported feeling nauseated and having dry heaves. He reports poor appetite due to the nausea. Patient takes 30 units of insulin every day . EKG independently interpreted as sinus rhythm with ventricular rate of 86 bpm, QTc interval of 448 ms, septal myocardial infarction probably old infarct CXR shows no significant abnormality seen. No acute cardiopulmonary disease. CT of mastoid without contrast shows clinical correlation recommended for early right mastoiditis. Otitis media on the right is likely present. Acute left maxillary sinusitis. Additional mucosal thickening is noted within the ethmoid air cells and the right maxillary sinus. The ostiomeatal units are obstructed.Started on Vancomycin and cefepime Lab work was significant for DKA, leukocytosis with left shift. Patient was admitted for management of DKA and acute left maxillary sinusitis and early right mastoiditis. 06/04 his gap was closed, transition to subcu insulin. Subjective: Was seen examined bedside, complaining of right ear drainage, generalized fatigue Pertinent positives and negatives as discussed above, a complete review of systems was performed and all other systems are negative. Vitals Signs Reviewed. General: [nontoxic], [no distress], [appears at stated age] Derm: [warm], [dry] Head: [atraumatic], [normocephalic], [symmetric], right ear drainage, mastoid tenderness Eyes: [EOMI], [no lid lag], [anicteric sclera] Mouth: [no lip lesion], [mucus membranes moist] Cardiovascular: [S1S2 reg], [no murmur] Lungs: [CTA bilateral], [no rhonchi, no rales] , [no accessory muscle use] Abdominal: [soft], [ nontender to palpation], [no guarding], [no appreciable organomegaly] Ext: [no gross muscle atrophy], [no edema], [no contractures] Neuro: [ CN II-XI grossly intact], [no focal neuro deficits] Psych: [Alert], [oriented], [appropriate affect] Data Reviewed Today: Pertinent Labs: Leukocytosis improving 12.4 today, hemoglobin dropped to 12.3 likely dilutional. Anion gap closed, glucose is better controlled Assessment and Plan: DKA, resolved Type II DM on insulin -DKA transition protocol ordered -Status post 9 units of NPH, will continue with Levemir 27 units daily, mealtime 9 units, sliding scale insulin Right otitis media in a patient with diabetes, risk for pseudomonal infection Right sided mastoiditis Acute left maxillary sinusitis Leukocytosis, improving -Ordered MRSA swab, pending, in the meantime continue with cefepime 2 provide MRSA coverage and pharmacy to dose vancomycin until MRSA swab is back COVID-positive -Continue symptomatic management -Patient is not in room air, no chest x-ray changes DVT ppx: SCD Anticipated discharge place: home Anticipated discharge time: 24 to 48 hours Objective - Vital Signs Vital signs: Vital Signs Temp 99.7 F H 06/04/24 14:49 Pulse 86 06/04/24 14:49 Resp 18 06/04/24 14:49 BP 133/74 06/04/24 14:49 Pulse Ox 98 06/04/24 14:49 FiO2 Intake & Output 06/03/24 06/04/24 06/04/24 18:59 06:59 18:59 Intake Total 69.524 2.473 Balance 69.524 2.473 Weight 90.718 kg 90.718 kg Intake: Intake, IV Titration 69.524 2.473 Amount Insulin Regular 100 unit 69.524 2.473 In Sodium Chloride 0.9% 100 ml @ 0.1 UNITS/KG/HR 9.163 mls/hr IV .Q11H2M [facility] Rx#:[id number] - Labs CBC & Chem 7: 06/04/24 05:56 06/04/24 05:56 Labs: Abnormal Lab Results - Last 24 Hours (Table) 06/03/24 06/03/24 06/03/24 Range/Units 16:41 16:41 18:57 WBC 13.8 H (3.8-10.6) k/uL RBC (4.30-5.90) m/uL Hgb (13.0-17.5) gm/dL Hct (39.0-53.0) % MCV 100.2 H (80.0-100.0) fL Neutrophils # 11.8 H (1.3-7.7) k/uL Lymphocytes # 0.9 L (1.0-4.8) k/uL Monocytes # (0-1.0) k/uL Sodium 134 L (137-145) mmol/L Chloride 97 L (98-107) mmol/L Carbon Dioxide 11 L (22-30) mmol/L BUN 25 H (9-20) mg/dL Glucose 391 H (74-99) mg/dL POC Glucose (mg/dL) 168 H (70-110) mg/dL Calcium (8.4-10.2) mg/dL Phosphorus (2.5-4.5) mg/dL Urine Protein (Negative) Urine Glucose (UA) (Negative) Urine Ketones (Negative) Urine Blood (Negative) Hyaline Casts (0-2) /lpf Urine Mucus (None) /hpf 06/03/24 06/03/24 06/03/24 Range/Units 20:26 20:33 20:33 WBC (3.8-10.6) k/uL RBC (4.30-5.90) m/uL Hgb (13.0-17.5) gm/dL Hct (39.0-53.0) % MCV (80.0-100.0) fL Neutrophils # (1.3-7.7) k/uL Lymphocytes # (1.0-4.8) k/uL Monocytes # (0-1.0) k/uL Sodium 135 L 136 L (137-145) mmol/L Chloride (98-107) mmol/L Carbon Dioxide 11 L 11 L (22-30) mmol/L BUN 26 H 26 H (9-20) mg/dL Glucose 344 H 339 H (74-99) mg/dL POC Glucose (mg/dL) 349 H (70-110) mg/dL Calcium 8.1 L (8.4-10.2) mg/dL Phosphorus (2.5-4.5) mg/dL Urine Protein (Negative) Urine Glucose (UA) (Negative) Urine Ketones (Negative) Urine Blood (Negative) Hyaline Casts (0-2) /lpf Urine Mucus (None) /hpf 06/03/24 06/03/24 06/03/24 Range/Units 22:38 23:34 23:59 WBC (3.8-10.6) k/uL RBC (4.30-5.90) m/uL Hgb (13.0-17.5) gm/dL Hct (39.0-53.0) % MCV (80.0-100.0) fL Neutrophils # (1.3-7.7) k/uL Lymphocytes # (1.0-4.8) k/uL Monocytes # (0-1.0) k/uL Sodium (137-145) mmol/L Chloride (98-107) mmol/L Carbon Dioxide (22-30) mmol/L BUN (9-20) mg/dL Glucose (74-99) mg/dL POC Glucose (mg/dL) 257 H 228 H (70-110) mg/dL Calcium (8.4-10.2) mg/dL Phosphorus 2.0 L (2.5-4.5) mg/dL Urine Protein (Negative) Urine Glucose (UA) (Negative) Urine Ketones (Negative) Urine Blood (Negative) Hyaline Casts (0-2) /lpf Urine Mucus (None) /hpf 06/03/24 06/04/24 06/04/24 Range/Units 23:59 00:35 00:40 WBC (3.8-10.6) k/uL RBC (4.30-5.90) m/uL Hgb (13.0-17.5) gm/dL Hct (39.0-53.0) % MCV (80.0-100.0) fL Neutrophils # (1.3-7.7) k/uL Lymphocytes # (1.0-4.8) k/uL Monocytes # (0-1.0) k/uL Sodium (137-145) mmol/L Chloride (98-107) mmol/L Carbon Dioxide 14 L (22-30) mmol/L BUN 26 H (9-20) mg/dL Glucose 217 H (74-99) mg/dL POC Glucose (mg/dL) 207 H (70-110) mg/dL Calcium (8.4-10.2) mg/dL Phosphorus (2.5-4.5) mg/dL Urine Protein Trace H (Negative) Urine Glucose (UA) 4+ H (Negative) Urine Ketones 4+ H (Negative) Urine Blood Trace H (Negative) Hyaline Casts 14 H (0-2) /lpf Urine Mucus Rare H (None) /hpf 06/04/24 06/04/24 06/04/24 Range/Units 01:48 02:57 04:00 WBC (3.8-10.6) k/uL RBC (4.30-5.90) m/uL Hgb (13.0-17.5) gm/dL Hct (39.0-53.0) % MCV (80.0-100.0) fL Neutrophils # (1.3-7.7) k/uL Lymphocytes # (1.0-4.8) k/uL Monocytes # (0-1.0) k/uL Sodium (137-145) mmol/L Chloride (98-107) mmol/L Carbon Dioxide (22-30) mmol/L BUN (9-20) mg/dL Glucose (74-99) mg/dL POC Glucose (mg/dL) 182 H 198 H 146 H (70-110) mg/dL Calcium (8.4-10.2) mg/dL Phosphorus (2.5-4.5) mg/dL Urine Protein (Negative) Urine Glucose (UA) (Negative) Urine Ketones (Negative) Urine Blood (Negative) Hyaline Casts (0-2) /lpf Urine Mucus (None) /hpf 06/04/24 06/04/24 06/04/24 Range/Units 05:43 05:56 05:56 WBC 12.4 H (3.8-10.6) k/uL RBC 3.79 L (4.30-5.90) m/uL Hgb 12.3 L (13.0-17.5) gm/dL Hct 36.8 L (39.0-53.0) % MCV (80.0-100.0) fL Neutrophils # 9.6 H (1.3-7.7) k/uL Lymphocytes # 0.9 L (1.0-4.8) k/uL Monocytes # 1.6 H (0-1.0) k/uL Sodium (137-145) mmol/L Chloride 108 H (98-107) mmol/L Carbon Dioxide 19 L (22-30) mmol/L BUN 23 H (9-20) mg/dL Glucose 111 H (74-99) mg/dL POC Glucose (mg/dL) 124 H (70-110) mg/dL Calcium 8.1 L (8.4-10.2) mg/dL Phosphorus 1.2 L (2.5-4.5) mg/dL Urine Protein (Negative) Urine Glucose (UA) (Negative) Urine Ketones (Negative) Urine Blood (Negative) Hyaline Casts (0-2) /lpf Urine Mucus (None) /hpf 06/04/24 06/04/24 06/04/24 Range/Units 06:57 08:14 09:53 WBC (3.8-10.6) k/uL RBC (4.30-5.90) m/uL Hgb (13.0-17.5) gm/dL Hct (39.0-53.0) % MCV (80.0-100.0) fL Neutrophils # (1.3-7.7) k/uL Lymphocytes # (1.0-4.8) k/uL Monocytes # (0-1.0) k/uL Sodium (137-145) mmol/L Chloride (98-107) mmol/L Carbon Dioxide (22-30) mmol/L BUN (9-20) mg/dL Glucose (74-99) mg/dL POC Glucose (mg/dL) 133 H 149 H 157 H (70-110) mg/dL Calcium (8.4-10.2) mg/dL Phosphorus (2.5-4.5) mg/dL Urine Protein (Negative) Urine Glucose (UA) (Negative) Urine Ketones (Negative) Urine Blood (Negative) Hyaline Casts (0-2) /lpf Urine Mucus (None) /hpf 06/04/24 06/04/24 Range/Units 11:42 14:47 WBC (3.8-10.6) k/uL RBC (4.30-5.90) m/uL Hgb (13.0-17.5) gm/dL Hct (39.0-53.0) % MCV (80.0-100.0) fL Neutrophils # (1.3-7.7) k/uL Lymphocytes # (1.0-4.8) k/uL Monocytes # (0-1.0) k/uL Sodium (137-145) mmol/L Chloride (98-107) mmol/L Carbon Dioxide (22-30) mmol/L BUN (9-20) mg/dL Glucose (74-99) mg/dL POC Glucose (mg/dL) 173 H 138 H (70-110) mg/dL Calcium (8.4-10.2) mg/dL Phosphorus (2.5-4.5) mg/dL Urine Protein (Negative) Urine Glucose (UA) (Negative) Urine Ketones (Negative) Urine Blood (Negative) Hyaline Casts (0-2) /lpf Urine Mucus (None) /hpf
[2024-06-04 17:48] LABS: Glucose,Whole Blood 202 mg/dL (70-110)
[2024-06-04 21:19] LABS: Glucose,Whole Blood 173 mg/dL (70-110)
[2024-06-04] MEDS: INSULIN DETEMIR (LEVEMIR) 100 UNIT/ML SYR SQ SCH (21:29)
[2024-06-05 02:07] LABS: Glucose,Whole Blood 89 mg/dL (70-110)
[2024-06-05 06:38] LABS: Glucose,Whole Blood 54 mg/dL (70-110)
[2024-06-05 08:31] LABS: Glucose,Whole Blood 114 mg/dL (70-110)
[2024-06-05 09:20] LABS: Basophils % (A) 0 %; Eosinophils # (A) 0.1 k/uL (0-0.7); Eosinophils % (A) 1 %; HCT 39.4 % (39.0-53.0); HGB 13.4 gm/dL (13.0-17.5); Lymphocytes # (A) 0.8 k/uL (1.0-4.8); Lymphocytes % (A) 8 %; MCH 33.6 pg (25.0-35.0); MCV 98.7 fL (80.0-100.0); Mean Platelet Volume 8.8; Monocytes # (A) 1.2 k/uL (0-1.0); Monocytes % (A) 11 %; Neutrophils # (A) 8.4 k/uL (1.3-7.7); Neutrophils % (A) 78 %; Platelet Count 218 k/uL (150-450); RDW 12.6 % (11.5-15.5); WBC 10.8 k/uL (3.8-10.6)
[2024-06-05 09:35] LABS: African American GFR (CKD) >90 (>60 ml/min/1.73 sqM); Anion Gap 11 mmol/L; Blood Urea Nitrogen 15 mg/dL (9-20); Calcium 7.8 mg/dL (8.4-10.2); Carbon Dioxide 19 mmol/L (22-30); Chloride 105 mmol/L (98-107); Glucose 118 mg/dL (74-99); Non-African American GFR(CKD) >90 (>60 ml/min/1.73 sqM); Sodium 135 mmol/L (137-145)
[2024-06-05 09:40] LABS: Potassium 3.9 mmol/L (3.5-5.1)
[2024-06-05] MEDS: VANCOMYCIN TROUGH DUE 1 EACH MISC MISCELLANE ONE (10:48)
[2024-06-05 11:56] LABS: Glucose,Whole Blood 117 mg/dL (70-110)
[2024-06-05 13:40] VITALS: BP 169/80; PULSE 74; RESP 16; TEMP 98
--- NOTE | 2024-06-05 13:55 | P.DS ---
Providers Date of admission: 06/03/24 21:26 Attending physician: Ava Daniel MD Primary care physician: Benjamín Erazo Hospital Course: Discharge Diagnosis: DKA, resolved Type II DM on insulin Right otitis media in a patient with diabetes, risk for pseudomonal infection Right sided mastoiditis Acute left maxillary sinusitis Leukocytosis, improving COVID-positive Hospital Course: Patient is a 59-year-old male with insulin-dependent diabetes mellitus presented with generalized weakness that started last Monday. Patient recently traveled from [place] and several family members have tested positive for COVID. Patient currently reports generalized weakness all over the body that has been going on since last Monday. His symptoms have progressively gotten worse which made the patient to come to ED for evaluation. Alongside with generalized weakness, patient also reported having watery diarrhea for the past few days with no melena/hematochezia. In addition, patient reported feeling nauseated and having dry heaves. He reports poor appetite due to the nausea. Patient takes 30 units of insulin every day . EKG independently interpreted as sinus rhythm with ventricular rate of 86 bpm, QTc interval of 448 ms, septal myocardial infarction probably old infarct CXR shows no significant abnormality seen. No acute cardiopulmonary disease. CT of mastoid without contrast shows clinical correlation recommended for early right mastoiditis. Otitis media on the right is likely present. Acute left maxillary sinusitis. Additional mucosal thickening is noted within the ethmoid air cells and the right maxillary sinus. The ostiomeatal units are obstructed.Started on Vancomycin and cefepime Lab work was significant for DKA, leukocytosis with left shift. Patient was admitted for management of DKA and acute left maxillary sinusitis and early right mastoiditis. 06/04 his gap was closed, transition to subcu insulin. Patient remained afebrile throughout his hospital stay, his leukocytosis improved significantly. Patient is hemodynamically stable, overall stable for discharge to follow-up with primary care physician, advised to request ENT referral, he will be sent home on amoxicillin/clavulanate to complete 10 days of treatment. Apparently patient has not been checking his blood sugar at home, educated on importance of blood sugar checks in a diabetic patient who takes insulin, scripts provided to get lancets, strips, alcohol swabs, patient to check his blood sugar 4 times a day. Patient seen and examined at bedside.[] Vital signs reviewed and stable. General: [nontoxic], [no distress], [appears at stated age] Derm: [warm], [dry] Head: [atraumatic], [normocephalic], [symmetric], right ear drainage, mastoid tenderness Eyes: [EOMI], [no lid lag], [anicteric sclera] Mouth: [no lip lesion], [mucus membranes moist] Cardiovascular: [S1S2 reg], [no murmur] Lungs: [CTA bilateral], [no rhonchi, no rales] , [no accessory muscle use] Abdominal: [soft], [ nontender to palpation], [no guarding], [no appreciable organomegaly] Ext: [no gross muscle atrophy], [no edema], [no contractures] Neuro: [ CN II-XI grossly intact], [no focal neuro deficits] Psych: [Alert], [oriented], [appropriate affect] A total of 40inutes of time were spent preparing this complex discharge summary. Patient was discharged on [06/05/2024 Patient Condition at Discharge: Stable Plan - Discharge Summary New Discharge Prescriptions: New Alcohol Antiseptic Pads [Alcohol Swabs] 1 pad TOPICAL AC-TID #120 pad Amoxic-Pot Clav 875-125Mg [Augmentin 875-125] 1 tab PO Q12HR 10 Days #2 tab Insulin Detemir [Levemir Flexpen] 20 units SQ DAILY #7 each Blood Glucose Ctl High,Nml,Low [Glucose Control Solution] 1 each MC TID #120 each Blood Sugar Diagnostic [Glucose Test Strip] 1 each AC-TID #120 strip Discharge Medication List Alcohol Antiseptic Pads [Alcohol Swabs] 1 pad TOPICAL AC-TID #120 pad 06/05/24 [Rx] Amoxic-Pot Clav 875-125Mg [Augmentin 875-125] 1 tab PO Q12HR 10 Days #2 tab 06/05/24 [Rx] Blood Glucose Ctl High,Nml,Low [Glucose Control Solution] 1 each MC TID #120 each 06/05/24 [Rx] Blood Sugar Diagnostic [Glucose Test Strip] 1 each MC AC-TID #120 strip 06/05/24 [Rx] Insulin Detemir [Levemir Flexpen] 20 units SQ DAILY #7 each 06/05/24 [Rx] Follow up Appointment(s)/Referral(s): Benjamín Erazo DO [Primary Care Provider] - 1-2 days Patient Instructions/Handouts: Insulin Detemir (By injection), Diabetic Ketoacidosis (DC), Mastoiditis (DC) Activity/Diet/Wound Care/Special Instructions: Please, follow-up with your primary care physician, request ENT referral. Please come back to the ER if your symptoms are not improving or getting worse. Please, make sure you check your blood sugar 4 times a day in the morning and before meals, administering insulin. You can also discuss with your primary care provider continuous glucose monitor. Discharge Disposition: HOME SELF-CARE
[2024-06-05] MEDS: VANCOMYCIN 1,500 MG in SODIUM CHLORIDE 0.9% 500 ML 500 ML IVPB SCH (17:17)
[2024-06-05] MEDS ORDERED: INSULIN DETEMIR (LEVEMIR) 100 UNIT/ML SYR SQ SCH (21:00)
== END 2024-06-05 18:20 | disposition home or self-care (01) | DRG 420 ==
LOC: EC 13:48 → 3SCARD 21:26 → 4SSUR 06-05 11:44
PROVIDERS: ADMIT Internal Medicine; ATTEND Internal Medicine
DX: E11.10 Type 2 diabetes mellitus with ketoacidosis without coma (principal); H66.91 Otitis media, unspecified, right ear; H70.91 Unspecified mastoiditis, right ear; J01.00 Acute maxillary sinusitis, unspecified; U07.1 COVID-19; F17.210 Nicotine dependence, cigarettes, uncomplicated; E83.39 Other disorders of phosphorus metabolism; L03.116 Cellulitis of left lower limb; L03.115 Cellulitis of right lower limb; I25.2 Old myocardial infarction; W19.XXXA Unspecified fall, initial encounter; Z79.4 Long term (current) use of insulin; Z28.310 Unvaccinated for COVID-19
CPT/HCPCS: 36415; 70486; 71046; 80048; 80051; 80053; 80202; 81001; 82009; 82565; 82947; 83605; 83735; 84100; 84520; 85025; 85379; 85610; 85730; 87070; 87636; 93005; 96361; 96365; 96366; 96375; 99291